=== PATIENT | female | born 1990 | race Caucasian/White ===

== ENCOUNTER 2024-06-29 22:28 | Emergency (ER) | payer OTHER ==
[2024-06-29 22:40] VITALS: BP 118/83; PULSE 90; RESP 16; TEMP 98.4; BMI 21.7
[2024-06-29] MEDS ORDERED: diphenhydrAMINE HCL 25 MG CAPSULE (FP) PO ONE (22:58)
[2024-06-29] MEDS: diphenhydrAMINE HCL 25 MG CAPSULE (FP) PO ONE (23:02)
[2024-06-30] MEDS ORDERED: IBUPROFEN 600 MG TABLET (FP) PO ONE (00:03)
[2024-06-30] MEDS: IBUPROFEN 600 MG TABLET (FP) PO ONE (00:05)
== END 2024-06-30 00:43 | disposition home or self-care (01) ==
LOC: JER 22:28
DX: H92.01 Otalgia, right ear (principal); R22.0 Localized swelling, mass and lump, head
CPT/HCPCS: 99283-25